=== PATIENT | female | born 1955 | race Caucasian/White ===

== ENCOUNTER 2021-10-15 19:51 | Emergency (ER) | payer SELFPAY ==
[~2021-10-15] VITALS: Ht 147.3 cm; Wt 54.6 kg
[2021-10-15 20:46] VITALS: BP 165/99
[2021-10-15] MEDS ORDERED: IBUP-2028 MT (22:26)
[2021-10-15] MEDS ORDERED: HYDR-4001 MT (22:26)
[2021-10-15] MEDS ORDERED: IBUPROFEN 400MG TABLET PO ONE (22:30)
== END 2021-10-16 00:21 | disposition home or self-care (01) ==
LOC: ER 19:51
DX: S52.512A Displaced fracture of left radial styloid process, initial encounter for closed fracture (principal); S52.612A Displaced fracture of left ulna styloid process, initial encounter for closed fracture; W01.0XXA Fall on same level from slipping, tripping and stumbling without subsequent striking against object, initial encounter; Y93.9 Activity, unspecified; Y92.9 Unspecified place or not applicable
CPT/HCPCS: 29125; 73090; 73110; 73130; 99284